=== PATIENT | male | born 1985 | race Caucasian/White ===

== ENCOUNTER → 2022-02-06 09:21 | Outpatient (CLI) | payer BC, SELFPAY ==
--- NOTE | 2022-02-06 09:25 | DI.RAD.S_ITS ---
PROCEDURE: XR TOE LT MIN 2V INDICATIONS: left great toe injury TECHNIQUE: 3 views of the left 1st toe(s) acquired. COMPARISON: None. FINDINGS: Bones: No fractures or dislocations. No suspicious bony lesions. Soft tissues: No suspicious soft tissue densities. IMPRESSION: No fracture. No osseous lesion. If symptoms and/or clinical suspicion for pathology persists, further assessment with repeat radiographs (7-10 days) or advanced imaging (e.g. CT, MRI or bone scan) should be considered. Dictated by: Siria Yuan MD, PhD on 02/06/2022 at 14:25 Approved by: Siria Yuan MD, PhD on 02/06/2022 at 14:25
== END ==
PROVIDERS: Referring Provider Nurse Practitioner Family; Visit Provider Nurse Practitioner Family
DX: S99.922A Unspecified injury of left foot, initial encounter (principal); X58.XXXA Exposure to other specified factors, initial encounter
CPT/HCPCS: 73660